=== PATIENT | female | born 1965 | race Caucasian/White ===

== ENCOUNTER → 2019-03-13 | Day surgery (SDC) | payer OTHER ==
[2019-03-12 10:54] LABS: ANION GAP 13.8 mmol/L (8-16); BLOOD UREA NITROGEN 10 mg/dL (7-26); BUN/CREATININE RATIO 13 (6-25); CALCIUM 9.8 mg/dL (8.4-10.2); CARBON DIOXIDE 27 mmol/L (22-29); CHLORIDE 101 mmol/L (98-107); CREATININE, SERUM 0.79 mg/dL (0.57-1.11); EST GLOMERULAR FILTRATION RATE > 60 ML/MIN (60-); GLUCOSE 88 mg/dL (74-118); POTASSIUM 3.8 mmol/L (3.5-5.1); SODIUM 138 mmol/L (136-145)
[~2019-03-13] MED LIST: ALBUTEROL0.63 MG/3 INH; AMLODIPINE BESY10 MG PO; ASPIR 8181 MG PO; AZELASTINE137 MCG/0.; BUPIVACAINE HCL 0.5% INJ 30 ML VIAL INJ ONE; CEFAZOLIN SOD 1 GM/NS 50ML 50 ML IV ONE; DEXAMETHASONE SOD PHOS INJ 4 MG/ML VIAL ONE; FENTANYL CITRATE/PF 100MCG/2 ML INJ ONE; KETOROLAC TROMETHAMINE 30 MG/ML VIAL ONE; LEVOTHYROXINE112 MCG PO; LIDOCAINE 1% W/EPINEPHRINE 20 ML VIAL ONE; LIDOCAINE HCL 2% LOCAL INJ 5 ML SDV VIAL INJ ONE; MIDAZOLAM HCL 2 MG/2 ML VIAL ONE; ONDANSETRON HCL INJ 2MG/ML 2ML 2 MG/ML VIAL ONE; PENTOXIFYLLINE400 MG PO; PROPOFOL IV EMULSION 10 MG/ML 20 ML VIAL ONE; SEVOFLURANE INHAL SOLN 250 ML PEN BTL ONE; TRIAMTERENE-HCTZ1 EA PO; TYLENOL WITH C1 EAC1 PO; VITAMIN B-121000 MC1 PO
--- OUTSIDE RECORDS SUMMARY | 2019-03-13 06:21 | XMS REPORT | Summary of Care ---
Author Author [facility] Address Unknown Phone Unavailable Encounter FIN [facility] [id number] Date(s): 05/02/17 - 05/02/17 [facility] [address], [place] [address] Discharge Diagnosis: Postmenopausal bleeding Discharge Disposition: Discharged to Home or Self Care Attending Physician: Amna Posey MD Admitting Physician: Amna Posey MD Vital Signs 1 2 3 Most recent to oldest [Reference Range]: 36.8 DegC (04/28/17 10:43 AM) Temperature Oral [35.8-37.3 DegC] 36.4 DegC *LOW* (05/02/17 7:30 AM) Temperature Tympanic [36.6-38.1 DegC] 36.8 DegC (05/02/17 6:05 AM) Temperature Temporal Artery [36.3-37.8 DegC] 97.52 (05/02/17 7:30 AM) Temperature Tympanic Fahrenheit 63 bpm (05/02/17 6:05 AM) 56 bpm (04/28/17 10:43 AM) Peripheral Pulse Rate [55-105 bpm] 68 bpm (05/02/17 8:00 AM) 65 bpm (05/02/17 7:45 AM) 66 bpm (05/02/17 7:40 AM) Heart Rate Monitored [60-100 bpm] 16 (05/02/17 8:00 AM) 16 (05/02/17 7:45 AM) 16 (05/02/17 7:40 AM) Respiratory Rate [12-20] 99 % (05/02/17 8:00 AM) 99 % (05/02/17 7:45 AM) 99 % (05/02/17 7:40 AM) SpO2 [90-100 %] 114/66 mmHg (8/7/17 8:00 AM) 121/68 mmHg *HI* (05/02/17 7:45 AM) 99/62 mmHg *LOW* (05/02/17 7:40 AM) Blood Pressure [110-120/65-85 mmHg] 82 mmHg (05/02/17 8:00 AM) 85.7 mmHg (05/02/17 7:45 AM) 74.3 mmHg (05/02/17 7:40 AM) Mean Arterial Pressure, Cuff 172.72 cm (05/02/17 6:05 AM) 172.72 cm (04/28/17 10:43 AM) Height 172.72 cm (05/02/17 6:05 AM) 172.72 cm (04/28/17 10:43 AM) Height/Length Dosing 68 in (05/02/17 6:05 AM) 68 in (04/28/17 10:43 AM) Height Inches 57.61 kg (05/02/17 6:05 AM) 57.6 kg (04/28/17 10:43 AM) Weight 57.61 kg (05/02/17 6:05 AM) 57.6 kg (04/28/17 10:43 AM) Weight Dosing 127 lb (05/02/17 6:05 AM) 127 lb (04/28/17 10:43 AM) Weight Pounds 19.31 kg/m2 (05/02/17 6:05 AM) 19.31 kg/m2 (04/28/17 10:43 AM) Body Mass Index Problem List Condition Effective Dates Status Health Status Informant Hypertension(Confirm Active ed) Hypothyroidism(Confi Active rmed) Postmenopausal Active bleeding(Confirmed) Raynauds Active disease(Confirmed) Scleroderma(Confirme Active d) Allergies, Adverse Reactions, Alerts Substance Reaction Severity Status influenza virus vaccine, Active live Medications amLODIPine 10 mg oral tablet 10 mg=1 tabs, Oral, Daily, 0 Refill(s) Start Date: 04/28/17 Stop Date: 05/12/17 Status: Ordered Aspir 81 1 mg, Oral, Daily, 0 Refill(s) Start Date: 04/28/17 Stop Date: 05/12/17 Status: Ordered cefOXitin 2 gm, Soln-IV, IV Piggyback, Once, infuse over 30 minutes, first dose 05/02/17 6 :00:00 CDT, stop date 05/02/17 6:00:00 CDT, Prophylaxis Start Date: 05/02/17 Stop Date: 05/02/17 Status: Completed cefOXitin 2,000 mg, Soln-IV, IV, Once, first dose 05/02/17 7:15:00 CDT, stop date 05/02/17 7:15:00 CDT Start Date: 05/02/17 Stop Date: 05/02/17 Status: Completed Demerol HCl 12.5 mg=0.5 mL, Injection, IV Push, q5min PRN for Pain Mild (1-3), order duratio n: 4 doses, first dose 05/02/17 7:30:00 CDT, stop date Limited # of times Start Date: 05/02/17 Stop Date: 05/02/17 Status: Discontinued dexamethasone 8 mg, Injection, IV Push, Once, first dose 05/02/17 7:00:00 CDT, stop date 05/02 7:00:00 CDT Start Date: 05/02/17 Stop Date: 05/02/17 Status: Completed ePHEDrine 10 mg=0.2 mL, Injection, IV, Once, first dose 05/02/17 7:12:00 CDT, stop date 7:12:00 CDT Start Date: 05/02/17 Stop Date: 05/02/17 Status: Completed ethyl chloride topical spray 1 sprays, [place], TOP, Once, first dose 05/02/17 6:00:00 CDT, stop date 05/02/17 6:00:00 CDT Start Date: 05/02/17 Stop Date: 05/02/17 Status: Completed fentaNYL 100 mcg=2 mL, Injection, IV, Once, first dose 05/02/17 7:05:00 CDT, stop date 7:05:00 CDT Start Date: 05/02/17 Stop Date: 05/02/17 Status: Completed hydrochlorothiazide-triamterene 25 mg-37.5 mg oral capsule caps, Oral, Daily, 0 Refill(s) Start Date: 04/28/17 Stop Date: 05/12/17 Status: Ordered ibuprofen 800 mg oral tablet 800 mg=1 tabs, Oral, TID, PRN for pain, # 20 tabs, 1 Refill(s) Start Date: 05/02/17 Stop Date: 05/16/17 Status: Ordered lidocaine 4 mL, Injection, IV, Once, first dose 05/02/17 7:05:00 CDT, stop date 05/02/17 7 :05:00 CDT Start Date: 05/02/17 Stop Date: 05/02/17 Status: Completed LR 1,000 mL 1,000 mL, IV, 100 mL/hr, start date 05/02/17 5:42:00 CDT, For Adults Start Date: 05/02/17 Stop Date: 05/02/17 Status: Discontinued midazolam 2 mg=2 mL, Injection, IV, Once, first dose 05/02/17 6:56:00 CDT, stop date 05/02 6:56:00 CDT Start Date: 05/02/17 Stop Date: 05/02/17 Status: Completed Misc Medication 500 mL, Soln-IV, IV, Once, first dose 05/02/17 7:37:00 CDT, stop date 05/02/17 7 :37:00 CDT Start Date: 05/02/17 Stop Date: 05/02/17 Status: Completed morphine 1 mg=0.1 mL, Injection, IV Push, q5min PRN for Pain Moderate (4-6), order durati on: 5 doses, first dose 05/02/17 7:30:00 CDT, stop date Limited # of times Start Date: 05/02/17 Stop Date: 05/02/17 Status: Discontinued morphine 2 mg=0.2 mL, Injection, IV Push, q5min PRN for pain severe (7-10), order duratio n: 5 doses, first dose 05/02/17 7:30:00 CDT, stop date Limited # of times Start Date: 05/02/17 Stop Date: 05/02/17 Status: Discontinued ondansetron 4 mg=2 mL, Injection, IV Push, Once, first dose 05/02/17 7:00:00 CDT, stop date 05/02/17 7:00:00 CDT Start Date: 05/02/17 Stop Date: 05/02/17 Status: Completed promethazine IVPB 12.5 mg, IV Piggyback, Once PRN for nausea/vomiting, infuse over 15 minutes, fir st dose 05/02/17 7:30:00 CDT Start Date: 05/02/17 Stop Date: 05/02/17 Status: Discontinued propofol 150 mg=15 mL, Emulsion, IV, Once, first dose 05/02/17 7:05:00 CDT, stop date 04/11 7:05:00 CDT Start Date: 05/02/17 Stop Date: 05/02/17 Status: Completed scopolamine 1.5 mg transdermal film, extended release 1 patches, Film-ER, TD, Once, first dose 05/02/17 7:00:00 CDT, stop date 7 7:00:00 CDT Start Date: 05/02/17 Stop Date: 05/02/17 Status: Completed Synthroid 200 mcg (0.2 mg) oral tablet 200 mcg=1 tabs, Oral, Daily, 0 Refill(s) Start Date: 04/28/17 Stop Date: 05/12/17 Status: Ordered Transderm-Scop 1.5 mg transdermal film, extended release 1 patches, Film-ER, TD, At Discharge, first dose 05/02/17 7:27:00 CDT Start Date: 05/02/17 Stop Date: 05/02/17 Status: Discontinued Zoloft 100 mg oral tablet 100 mg=1 tabs, Oral, qHS, 0 Refill(s) Start Date: 04/28/17 Stop Date: 05/12/17 Status: Ordered Results LABORATORY Most recent to 1 oldest [Reference Range]: White Blood Count 9.9 K/CMM [3.7-10.4 K/CMM] *NA* (04/28/17 11:50 AM) Red Blood Cell Count 4.26 M/CMM [4.20-5.40 M/CMM] *NA* (04/28/17 11:50 AM) Hemoglobin 12.7 gm/dL [12.0-16.0 gm/dL] *NA* (04/28/17 11:50 AM) Hematocrit 37.9 % [36.0-48.0 %] *NA* (04/28/17 11:50 AM) Platelet [133-450 288 K/CMM K/CMM] *NA* (04/28/17 11:50 AM) MCV [80.0-98.0 fL] 88.9 fL *NA* (04/28/17 11:50 AM) MCH [27.0-31.0 pg] 29.8 pg *NA* (04/28/17 11:50 AM) MCHC [32.0-36.0 33.5 gm/dL gm/dL] *NA* (04/28/17 11:50 AM) RDW [11.5-14.5 %] 15.4 % *HI* (04/28/17 11:50 AM) MPV [7.4-10.4 fL] 10.1 fL *NA* (04/28/17 11:50 AM) Neutrophil % 43.3 % [45.0-75.0 %] *LOW* (04/28/17 11:50 AM) Lymphocyte % 32.8 % [20.0-40.0 %] *NA* (04/28/17 11:50 AM) Monocyte % [2.0-12.0 13.1 % %] *HI* (04/28/17 11:50 AM) Eosinophil % 0.8 K/CMM [0.0-0.5 K/CMM] *HI* (04/28/17 11:50 AM) Basophil % [0.0-1.0 2.8 % %] *HI* (04/28/17 11:50 AM) Neutrophil # 4.3 K/CMM [1.5-8.1 K/CMM] *NA* (04/28/17 11:50 AM) Lymphocyte # 3.2 K/CMM [1.0-5.5 K/CMM] *NA* (04/28/17 11:50 AM) Monocyte # [0.0-0.8 1.3 K/CMM K/CMM] *HI* (04/28/17 11:50 AM) Eosinophil # 8.0 % [0.0-4.0 %] *HI* (04/28/17 11:50 AM) Basophil # [0.0-0.2 0.3 K/CMM K/CMM] *HI* (04/28/17 11:50 AM) Sodium Level 138 mEq/L [135-145 mEq/L] *NA* (04/28/17 11:50 AM) Potassium Level 3.7 mEq/L [3.5-5.1 mEq/L] *NA* (04/28/17 11:50 AM) Chloride Level 98 mEq/L [95-109 mEq/L] *NA* (04/28/17 11:50 AM) Total Carbon Dioxide 32 mEq/L Level [24-32 mEq/L] *NA* (04/28/17 11:50 AM) AGAP [10.0-20.0 11.7 mEq/L mEq/L] *NA* (04/28/17 11:50 AM) BUN [7-22 mg/dL] 10 mg/dL *NA* (04/28/17 11:50 AM) Creatinine 0.95 mg/dL [0.50-1.40 mg/dL] *NA* (04/28/17 11:50 AM) Glucose Lvl [70-99 64 mg/dL 1 mg/dL] *LOW* (04/28/17 11:50 AM) Calcium Level 9.3 mg/dL [8.5-10.5 mg/dL] *NA* (04/28/17 11:50 AM) eGFR 70 mL/min/1.73m2 2 *NA* (04/28/17 11:50 AM) Magnesium Level 2.0 mg/dL [1.8-2.4 mg/dL] *NA* (04/28/17 11:50 AM) Beta hCG Ql Negative [Negative] *NA* (04/28/17 11:50 AM) 1Result Comment: Adult reference range values reflect the clinical guidelines of the [place] [employer]. 2Result Comment: The eGFR is calculated using the CKD-EPI formula. In most young, healthy individuals the eGFR will be >90 mL/min/1.73m2. The eGFR declines with age. An eGFR of 60-89 may be normal in some populations, particularly the elderly, for whom the CKD-EPI formula has not been extensively validated. Use of the eGFR is not recommended in the following populations: Individuals with unstable creatinine concentrations, including patients and those with serious co-morbid conditions. Patients with extremes in muscle mass or diet. The data above are obtained from the National Kid[employer] Education Program (NKDEP) which additionally recommends that when the eGFR is used in patients with extremes of body mass index for purposes of drug dosing, the eGFR should be multiplied by the estimated BMI. Immunizations No data available for this section Procedures Procedure Date Related Diagnosis Body Site Acute tear of lateral meniscus of right knee Cryotherapy TL - Tubal ligation Social History Social History Type Response Assessment and Plan No data available for this section
--- OUTSIDE RECORDS SUMMARY | 2019-03-13 06:21 | XMS REPORT | Continuity of Care Document ---
Author Author [facility] Interface Address Unknown Phone Unavailable Problems Problem Status Onset Date Classification Date Reported Comments Source Other chronic sinusitis 11/09/2018 11/11/2018 [facility] Discharge Diagnosis: Endometrial hyperplasia, unspecified 08/22/2017 08/25/2017 [facility] Discharge Diagnosis: Postmenopausal bleeding 05/02/2017 05/04/2017 [facility] Endometrial hyperplasia Active Problem 11/11/2018 [facility] Hepatitis C<sup>1</sup> Resolved Problem 11/11/2018 was when she was 9years old and took treatment [facility] Hypertension Active Problem 11/11/2018 [facility] Hypothyroidism Active Problem 11/11/2018 [facility] Lupus Active Problem 11/11/2018 [facility] PONV - Postoperative nausea and vomiting Active Problem 11/11/2018 [facility] Postmenopausal bleeding Active Problem 11/11/2018 [facility] Raynauds disease Active Problem 11/11/2018 [facility] Scleroderma Active Problem 11/11/2018 [facility] Medications Medication Details Route Status Patient Instructions Ordering Provider Order Date Source [facility] Medication 900 mL, Soln-IV, IV, Once, first dose 11/09/18 10:05:00 BELT SANDER, stop date 11/09/18 10:05:00 BELT SANDER Inactive 11/09/2018 [facility] glycopyrrolate 0.8 mg=4 mL, Injection, IV, Once, first dose 11/09/18 9:43:00 BELT SANDER, stop date 11/09/18 9:43:00 BELT SANDER Inactive 11/09/2018 [facility] neostigmine 5 mg=5 mL, Injection, IV, Once, first dose 11/09/18 9:43:00 BELT SANDER, stop date 11/09/18 9:43:00 BELT SANDER Inactive 11/09/2018 [facility] ondansetron 4 mg=2 mL, Injection, IV, Once, first dose 11/09/18 9:38:00 BELT SANDER, stop date 11/09/18 9:38:00 BELT SANDER Inactive 11/09/2018 [facility] acetaminophen 1,000 mg, Soln-IV, IV, Once, first dose 11/09/18 9:08:00 BELT SANDER, stop date 11/09/18 9:08:00 BELT SANDER Inactive 11/09/2018 [facility] ondansetron 4 mg=2 mL, Injection, IV, Once, first dose 11/09/18 9:03:00 BELT SANDER, stop date 11/09/18 9:03:00 BELT SANDER Inactive 11/09/2018 [facility] promethazine 12.5 mg=0.5 mL, Injection, IV, Once, first dose 11/09/18 8:54:00 BELT SANDER, stop date 11/09/18 8:54:00 BELT SANDER Inactive 11/09/2018 [facility] dexamethasone 8 mg=2 mL, Injection, IV, Once, first dose 11/09/18 8:53:00 BELT SANDER, stop date 11/09/18 8:53:00 BELT SANDER Inactive 11/09/2018 [facility] ePHEDrine 25 mg=0.5 mL, Injection, IM, Once, first dose 11/09/18 8:49:00 BELT SANDER, stop date 11/09/18 8:49:00 BELT SANDER Inactive 11/09/2018 [facility] ePHEDrine 10 mg=0.2 mL, Injection, IV, Once, first dose 11/09/18 8:45:00 BELT SANDER, stop date 11/09/18 8:45:00 BELT SANDER Inactive 11/09/2018 [facility] rocuronium 35 mg=3.5 mL, Injection, IV, Once, first dose 11/09/18 8:41:00 BELT SANDER, stop date 11/09/18 8:41:00 BELT SANDER Inactive 11/09/2018 [facility] lidocaine 80 mg=4 mL, Injection, IV, Once, first dose 11/09/18 8:41:00 BELT SANDER, stop date 11/09/18 8:41:00 BELT SANDER Inactive 11/09/2018 [facility] propofol 150 mg=15 mL, Emulsion, IV, Once, first dose 11/09/18 8:41:00 BELT SANDER, stop date 11/09/18 8:41:00 BELT SANDER Inactive 11/09/2018 [facility] fentaNYL 100 mcg=2 mL, Injection, IV, Once, first dose 11/09/18 8:41:00 BELT SANDER, stop date 11/09/18 8:41:00 BELT SANDER Inactive 11/09/2018 [facility] midazolam 2 mg=2 mL, Injection, IV, Once, first dose 11/09/18 8:30:00 BELT SANDER, stop date 11/09/18 8:30:00 BELT SANDER Inactive 11/09/2018 [facility] Pain Ease topical spray 1 sprays, [place], TOP, Once, first dose 11/09/18 8:00:00 BELT SANDER, stop date 11/09/18 8:00:00 BELT SANDER, Apply topically for 4 - 10 seconds from a distance of 3 - 7 inches from the procedure site Inactive 11/09/2018 [facility] LR 1,000 mL 1,000 mL, IV, 100 mL/hr, start date 11/09/18 7:55:00 BELT SANDER, For Adults Inactive 11/09/2018 [facility] Colace 100 mg=1 caps, Cap, Oral, BID, first dose 08/23/17 9:00:00 BELT SANDER Inactive 08/23/2017 [facility] Lovenox 30 mg=0.3 mL, Injection, Subcutaneous, Daily, first dose 08/23/17 9:00:00 BELT SANDER Inactive 08/23/2017 [facility] Vicoprofen 1 tabs, Tab, Oral, q4hr PRN for pain mild-moderate (1-6), first dose 08/23/17 5:00:00 BELT SANDER Inactive 08/23/2017 [facility] ketorolac 30 mg=1 mL, Injection, IV Push, q8hr, first dose 08/22/17 21:00:00 CSTNotes: "Restricted: No more than 5 days of therapy from any route of administration." No Longer Active 08/23/2017 [facility] acetaminophen IVPB 1,000 mg, Soln-IV, IV Piggyback, q6hr, infuse over 15 minutes, first dose 08/22/17 14:00:00 CSTNotes: Max 4gm acetaminophen in 24 hours No Longer Active 08/22/2017 [facility] Lactated Ringers Injection 1,000 mL 1,000 mL, IV, 125 mL/hr, start date 08/22/17 14:00:00 BELT SANDER No Longer Active 08/22/2017 [facility] ketorolac 30 mg=1 mL, Injection, IV Push, q8hr PRN for pain, first dose 08/22/17 11:02:00 CSTNotes: "Restricted: No more than 5 days of therapy from any route of administration." Inactive 08/22/2017 [facility] Vicoprofen 2 tabs, Tab, Oral, Once, first dose 08/22/17 11:00:00 BELT SANDER, stop date 08/22/17 11:00:00 BELT SANDER [id number] 08/22/2017 [facility] communication to pharmacist Pharmacist to D/C medications upon transfer, Each, N/A, Once, first dose 08/22/17 11:00:00 BELT SANDER, stop date 08/22/17 11:00:00 BELT SANDER Inactive 08/22/2017 [facility] ondansetron 4 mg=2 mL, Injection, IV Push, q8hr PRN for nausea/vomiting, first dose 08/22/17 10:06:00 BELT SANDER No Longer Active 08/22/2017 [facility] promethazine IVPB 12.5 mg, IV Piggyback, q6hr PRN for severe nausea, infuse over 15 minutes, first dose 08/22/17 10:06:00 BELT SANDER No Longer Active 08/22/2017 [facility] Acetaminophen 650 mg=2 tabs, Tab, Oral, q6hr PRN for temp greater than 101.5 F (38.6 C), first dose 08/22/17 10:06:00 CSTNotes: Max 4gm acetaminophen in 24 hours No Longer Active 08/22/2017 [facility] Mylicon 160 mg=2 tabs, Tab-Chew, Oral, q4hr PRN for gas, first dose 08/22/17 10:06:00 BELT SANDER No Longer Active 08/22/2017 [facility] Benadryl 25 mg=0.5 mL, Injection, IM, q6hr PRN for itching, first dose 08/22/17 10:06:00 BELT SANDER No Longer Active 08/22/2017 [facility] Meperidine 30 mL, [employer] Dose (mg): 10, Lockout Interval (min): 10, Limit Amount (mg): 50, Limit Period (hr): 1, Loading Dose (mg): 20, IV, [employer], start date 08/22/17 10:06:00 BELT SANDER No Longer Active 08/22/2017 [facility] D5W with NS 1,000 mL 1,000 mL, IV, 125 mL/hr, start date 08/22/17 10:06:00 BELT SANDER Inactive 08/22/2017 [facility] naloxone 0.4 mg=1 mL, Injection, IV Push, q2min PRN for other (see comment), first dose 08/22/17 10:06:00 BELT SANDER No Longer Active 08/22/2017 [facility] Demerol HCl 12.5 mg=0.5 mL, Injection, IV Push, q5min PRN for Pain Mild (1-3), order duration: 4 doses, first dose 08/22/17 9:00:00 BELT SANDER, stop date 08/22/17 10:15:00 BELT SANDER Inactive 08/22/2017 [facility] morphine 2 mg=0.2 mL, Injection, IV Push, q5min PRN for pain severe (7-10), order duration: 5 doses, first dose 08/22/17 9:00:00 BELT SANDER, stop date 08/22/17 10:15:00 BELT SANDER Inactive 08/22/2017 [facility] promethazine IVPB 12.5 mg, IV Piggyback, Once PRN for nausea/vomiting, infuse over 15 minutes, first dose 08/22/17 9:00:00 BELT SANDER Inactive 08/22/2017 [facility] Misc Medication 1,000 mL, Soln-IV, IV, Once, first dose 08/22/17 8:51:00 BELT SANDER, stop date 08/22/17 8:51:00 BELT SANDER Inactive 08/22/2017 [facility] morphine 5 mg=0.5 mL, Injection, IV, Once, first dose 08/22/17 8:33:00 BELT SANDER, stop date 08/22/17 8:33:00 BELT SANDER Inactive 08/22/2017 [facility] neostigmine 3 mg=3 mL, Injection, IV, Once, first dose 08/22/17 8:27:00 BELT SANDER, stop date 08/22/17 8:27:00 BELT SANDER Inactive 08/22/2017 [facility] glycopyrrolate 0.4 mg=2 mL, Injection, IV, Once, first dose 08/22/17 8:27:00 BELT SANDER, stop date 08/22/17 8:27:00 BELT SANDER Inactive 08/22/2017 [facility] ondansetron 4 mg=2 mL, Injection, IV, Once, first dose 08/22/17 8:25:00 BELT SANDER, stop date 08/22/17 8:25:00 BELT SANDER Inactive 08/22/2017 [facility] ketorolac 30 mg=1 mL, Injection, IV, Once, first dose 08/22/17 8:20:00 BELT SANDER, stop date 08/22/17 8:20:00 BELT SANDER Inactive 08/22/2017 [facility] acetaminophen 1,000 mg, Soln-IV, IV, Once, first dose 08/22/17 8:10:00 BELT SANDER, stop date 08/22/17 8:10:00 BELT SANDER Inactive 08/22/2017 [facility] rocuronium 10 mg=1 mL, Injection, IV, Once, first dose 08/22/17 8:04:00 BELT SANDER, stop date 08/22/17 8:04:00 BELT SANDER Inactive 08/22/2017 [facility] morphine 5 mg=0.5 mL, Injection, IV, Once, first dose 08/22/17 7:50:00 BELT SANDER, stop date 08/22/17 7:50:00 BELT SANDER Inactive 08/22/2017 [facility] ePHEDrine 10 mg=0.2 mL, Injection, IV, Once, first dose 08/22/17 7:45:00 BELT SANDER, stop date 08/22/17 7:45:00 BELT SANDER Inactive 08/22/2017 [facility] ePHEDrine 10 mg=0.2 mL, Injection, IV, Once, first dose 08/22/17 7:36:00 BELT SANDER, stop date 08/22/17 7:36:00 BELT SANDER Inactive 08/22/2017 [facility] dexamethasone 8 mg=2 mL, Injection, IV, Once, first dose 08/22/17 7:35:00 BELT SANDER, stop date 08/22/17 7:35:00 BELT SANDER Inactive 08/22/2017 [facility] lidocaine topical 1 esdras, Soln, IV, Once, first dose 08/22/17 7:32:00 BELT SANDER, stop date 08/22/17 7:32:00 BELT SANDER Inactive 08/22/2017 [facility] rocuronium 30 mg=3 mL, Injection, IV, Once, first dose 08/22/17 7:30:00 BELT SANDER, stop date 08/22/17 7:30:00 BELT SANDER Inactive 08/22/2017 [facility] lidocaine 3 mL, Injection, IV, Once, first dose 08/22/17 7:29:00 BELT SANDER, stop date 08/22/17 7:29:00 BELT SANDER Inactive 08/22/2017 [facility] propofol 150 mg=15 mL, Emulsion, IV, Once, first dose 08/22/17 7:29:00 BELT SANDER, stop date 08/22/17 7:29:00 BELT SANDER Inactive 08/22/2017 [facility] fentaNYL 100 mcg=2 mL, Injection, IV, Once, first dose 08/22/17 7:25:00 BELT SANDER, stop date 08/22/17 7:25:00 BELT SANDER Inactive 08/22/2017 [facility] cefOXitin 2,000 mg, Soln-IV, IV, Once, first dose 08/22/17 7:22:00 BELT SANDER, stop date 08/22/17 7:22:00 BELT SANDER Inactive 08/22/2017 [facility] midazolam 2 mg=2 mL, Injection, IV, Once, first dose 08/22/17 7:20:00 BELT SANDER, stop date 08/22/17 7:20:00 BELT SANDER Inactive 08/22/2017 [facility] 72 HR Scopolamine 0.0139 MG/HR Transdermal Patch 1 patches, Film-ER, TD, Once, first dose 08/22/17 7:00:00 BELT SANDER, stop date 08/22/17 7:00:00 BELT SANDER Inactive 08/22/2017 [facility] ondansetron 4 mg=2 mL, Injection, IV Push, Once, first dose 08/22/17 7:00:00 BELT SANDER, stop date 08/22/17 7:00:00 BELT SANDER Inactive 08/22/2017 [facility] dexamethasone 8 mg, Injection, IV Push, Once, first dose 08/22/17 7:00:00 BELT SANDER, stop date 08/22/17 7:00:00 BELT SANDER Inactive 08/22/2017 [facility] cefOXitin 2 gm, Soln-IV, IV Piggyback, Once, infuse over 30 minutes, first dose 08/22/17 7:00:00 BELT SANDER, stop date 08/22/17 7:00:00 BELT SANDER, Prophylaxis Inactive 08/22/2017 [facility] Pain Ease topical spray 1 sprays, [place], TOP, Once, first dose 08/22/17 7:00:00 BELT SANDER, stop date 08/22/17 7:00:00 BELT SANDER, Apply topically for 4 - 10 seconds from a distance of 3 - 7 inches from the procedure site Inactive 08/22/2017 [facility] LR 1,000 mL 1,000 mL, IV, 100 mL/hr, start date 08/22/17 6:23:00 BELT SANDER, For Adults No Longer Active 08/22/2017 [facility] Misc Medication 500 mL, Soln-IV, IV, Once, first dose 05/02/17 7:37:00 CDT, stop date 05/02/17 7:37:00 CDT Inactive 05/02/2017 [facility] Morphine 1 mg=0.1 mL, Injection, IV Push, q5min PRN for Pain Moderate (4-6), order duration: 5 doses, first dose 05/02/17 7:30:00 CDT, stop date Limited # of times Inactive 05/02/2017 [facility] Demerol HCl 12.5 mg=0.5 mL, Injection, IV Push, q5min PRN for Pain Mild (1-3), order duration: 4 doses, first dose 05/02/17 7:30:00 CDT, stop date Limited # of times Inactive 05/02/2017 [facility] promethazine IVPB 12.5 mg, IV Piggyback, Once PRN for nausea/vomiting, infuse over 15 minutes, first dose 05/02/17 7:30:00 CDT Inactive 05/02/2017 [facility] Ibuprofen 800 MG Oral Tablet 800 mg=1 tabs, Oral, TID, PRN for pain, # 20 tabs, 1 Refill(s) [id number] 05/02/2017 [facility] 72 HR Scopolamine 0.0139 MG/HR Transdermal Patch [Transderm Scop] 1 patches, Film-ER, TD, At Discharge, first dose 05/02/17 7:27:00 CDT Inactive 05/02/2017 [facility] cefOXitin 2,000 mg, Soln-IV, IV, Once, first dose 05/02/17 7:15:00 CDT, stop date 05/02/17 7:15:00 CDT Inactive 05/02/2017 [facility] ePHEDrine 10 mg=0.2 mL, Injection, IV, Once, first dose 05/02/17 7:12:00 CDT, stop date 05/02/17 7:12:00 CDT Inactive 05/02/2017 [facility] fentaNYL 100 mcg=2 mL, Injection, IV, Once, first dose 05/02/17 7:05:00 CDT, stop date 05/02/17 7:05:00 CDT Inactive 05/02/2017 [facility] lidocaine 4 mL, Injection, IV, Once, first dose 05/02/17 7:05:00 CDT, stop date 05/02/17 7:05:00 CDT Inactive 05/02/2017 [facility] propofol 150 mg=15 mL, Emulsion, IV, Once, first dose 05/02/17 7:05:00 CDT, stop date 05/02/17 7:05:00 CDT Inactive 05/02/2017 [facility] Ondansetron 4 mg=2 mL, Injection, IV Push, Once, first dose 05/02/17 7:00:00 CDT, stop date 05/02/17 7:00:00 CDT Inactive 05/02/2017 [facility] 72 HR Scopolamine 0.0139 MG/HR Transdermal Patch 1 patches, Film-ER, TD, Once, first dose 05/02/17 7:00:00 CDT, stop date 05/02/17 7:00:00 CDT Inactive 05/02/2017 [facility] Dexamethasone 8 mg, Injection, IV Push, Once, first dose 05/02/17 7:00:00 CDT, stop date 05/02/17 7:00:00 CDT Inactive 05/02/2017 [facility] midazolam 2 mg=2 mL, Injection, IV, Once, first dose 05/02/17 6:56:00 CDT, stop date 05/02/17 6:56:00 CDT Inactive 05/02/2017 [facility] Cefoxitin 2 gm, Soln-IV, IV Piggyback, Once, infuse over 30 minutes, first dose 05/02/17 6:00:00 CDT, stop date 05/02/17 6:00:00 CDT, Prophylaxis Inactive 05/02/2017 [facility] Ethyl Chloride 1 ML/ML Topical [place] 1 sprays, [place], TOP, Once, first dose 05/02/17 6:00:00 CDT, stop date 05/02/17 6:00:00 CDT Inactive 05/02/2017 [facility] LR 1,000 mL 1,000 mL, IV, 100 mL/hr, start date 05/02/17 5:42:00 CDT, For Adults Inactive 05/02/2017 [facility] Sertraline 100 MG Oral Tablet [Zoloft] 100 mg=1 tabs, Oral, qHS, 0 Refill(s) Active 04/28/2017 [facility] Sertraline 100 MG Oral Tablet [Zoloft] 100 mg=1 tabs, Oral, qHS, 0 Refill(s) Active 04/28/2017 [facility] amLODIPine 10 mg oral tablet 10 mg=1 tabs, Oral, Daily, 0 Refill(s) Active 04/28/2017 [facility] Aspir 81 1 mg, Oral, Daily, 0 Refill(s) Active 04/28/2017 [facility] Hydrochlorothiazide 25 MG / Triamterene 37.5 MG Oral Capsule caps, Oral, Daily, 0 Refill(s) Active 04/28/2017 [facility] Levothyroxine Sodium 0.2 MG Oral Tablet [Synthroid] 200 mcg=1 tabs, Oral, Daily, 0 Refill(s) Active 04/28/2017 [facility] hydrochlorothiazide-triamterene 25 mg-37.5 mg oral capsule caps, Oral, Daily, 0 Refill(s) Active 04/28/2017 [facility] Levothyroxine Sodium 0.2 MG Oral Tablet [Synthroid] 200 mcg=1 tabs, Oral, Daily, 0 Refill(s) Active 04/28/2017 [facility] Allergies, Adverse Reactions, Alerts Substance Category Reaction Severity Reaction type Status Date Reported Comments Source influenza virus vaccine, live Assertion Drug allergy Active [facility] Immunizations Immunization Date Given Site Status Last Updated Comments Source Results Order Name Results Value Reference Range Date Interpretation Comments Source LABORATORY PTT 35.6 s 22.9 - 35.8 11/06/2018 Result Comment: Heparin Therapeutic Range: 57 - 92 Seconds [facility] PT 13.0 s 12.0 - 14.7 11/06/2018 [facility] INR 1.00 0.85 - 1.17 11/06/2018 Result Comment: RECOMMENDED RANGES FOR PROTIME INR: 2.0-3.0 for most medical and surgical thromboembolic states. 2.5-3.5 for artificial heart valves and recurrent embolism. INR SHOULD BE USED ONLY FOR PATIENTS ON STABLE ANTICOAGULANT THERAPY. [facility] AGAP 12.9 meq/L 10.0 - 20.0 11/06/2018 [facility] Calcium Level 9.4 mg/dL 8.5 - 10.5 11/06/2018 [facility] BUN 15 mg/dL 7 - 22 11/06/2018 [facility] Glucose Lvl 86 mg/dL 70 - 99 11/06/2018 Result Comment: Adult reference range values reflect the clinical guidelines of the [place] [employer]. [facility] Sodium Level 138 meq/L 135 - 145 11/06/2018 [facility] Potassium Level 3.9 meq/L 3.5 - 5.1 11/06/2018 [facility] Carbon Dioxide Level 29 meq/L 24 - 32 11/06/2018 [facility] Chloride Level 100 meq/L 95 - 109 11/06/2018 [facility] Creatinine 0.69 mg/dL 0.50 - 1.40 11/06/2018 [facility] eGFR 101 mL/min/1.73m2 11/06/2018 Result Comment: The eGFR is calculated using the [...] should be multiplied by the estimated BMI. [facility] ALT 20 unit/L 0 - 65 11/06/2018 [facility] AST 17 unit/L 0 - 37 11/06/2018 [facility] Red Blood Cell Count 4.30 M/CMM 4.20 - 5.40 11/06/2018 [facility] Platelet 320 K/CMM 133 - 450 11/06/2018 [facility] MPV 9.7 fL 7.4 - 10.4 11/06/2018 [facility] MCHC 32.0 g/dL 32.0 - 36.0 11/06/2018 [facility] RDW 16.8 % 11.5 - 14.5 11/06/2018 [facility] White Blood Count 9.4 K/CMM 3.7 - 10.4 11/06/2018 [facility] MCV 83.8 fL 80.0 - 98.0 11/06/2018 [facility] MCH 26.8 pg 27.0 - 31.0 11/06/2018 [facility] Hemoglobin 11.5 g/dL 12.0 - 16.0 11/06/2018 [facility] Hematocrit 36.0 % 36.0 - 48.0 11/06/2018 [facility] Eosinophil # 6.2 % 0.0 - 4.0 11/06/2018 [facility] Neutrophil % 40.1 % 45.0 - 75.0 11/06/2018 [facility] Monocyte % 15.5 % 2.0 - 12.0 11/06/2018 [facility] Basophil % 1.3 % 0.0 - 1.0 11/06/2018 [facility] Lymphocyte % 36.9 % 20.0 - 40.0 11/06/2018 [facility] Eosinophil % 0.6 K/CMM 0.0 - 0.5 11/06/2018 [facility] Basophil # 0.1 K/CMM 0.0 - 0.2 11/06/2018 [facility] Lymphocyte # 3.5 K/CMM 1.0 - 5.5 11/06/2018 [facility] Monocyte # 1.5 K/CMM 0.0 - 0.8 11/06/2018 [facility] Neutrophil # 3.8 K/CMM 1.5 - 8.1 11/06/2018 [facility] FIO2 98 % 08/22/2017 [facility] Lymphocyte # 2.8 K/CMM 1.0 - 5.5 08/17/2017 [facility] Neutrophil # 3.8 K/CMM 1.5 - 8.1 08/17/2017 [facility] Eosinophil % 0.3 K/CMM 0.0 - 0.5 08/17/2017 [facility] Monocyte # 1.1 K/CMM 0.0 - 0.8 08/17/2017 [facility] Basophil # 0.2 K/CMM 0.0 - 0.2 08/17/2017 [facility] Lymphocyte % 34.7 % 20.0 - 40.0 08/17/2017 [facility] Monocyte % 13.0 % 2.0 - 12.0 08/17/2017 [facility] Basophil % 2.5 % 0.0 - 1.0 08/17/2017 [facility] Eosinophil # 3.3 % 0.0 - 4.0 08/17/2017 [facility] Neutrophil % 46.5 % 45.0 - 75.0 08/17/2017 [facility] MPV 9.6 fL 7.4 - 10.4 08/17/2017 [facility] MCHC 33.0 g/dL 32.0 - 36.0 08/17/2017 [facility] MCH 29.6 pg 27.0 - 31.0 08/17/2017 [facility] Platelet 347 K/CMM 133 - 450 08/17/2017 [facility] RDW 14.5 % 11.5 - 14.5 08/17/2017 [facility] MCV 89.6 fL 80.0 - 98.0 08/17/2017 [facility] White Blood Count 8.1 K/CMM 3.7 - 10.4 08/17/2017 [facility] Hemoglobin 12.7 g/dL 12.0 - 16.0 08/17/2017 [facility] Red Blood Cell Count 4.30 M/CMM 4.20 - 5.40 08/17/2017 [facility] Hematocrit 38.6 % 36.0 - 48.0 08/17/2017 [facility] Calcium Level 9.9 mg/dL 8.5 - 10.5 08/17/2017 [facility] ALT 17 unit/L 0 - 65 08/17/2017 [facility] AST 18 unit/L 0 - 37 08/17/2017 [facility] Alk Phos 80 unit/L 39 - 136 08/17/2017 [facility] Bilirubin Total 0.4 mg/dL 0.2 - 1.3 08/17/2017 [facility] eGFR 73 mL/min/1.73m2 08/17/2017 Result Comment: The eGFR is calculated using the [...] should be multiplied by the estimated BMI. [facility] Globulin 3.9 g/dL 2.7 - 4.2 08/17/2017 [facility] Alb/Glob Ratio 1.0 0.7 - 1.6 08/17/2017 [facility] Albumin Lvl 4.0 g/dL 3.5 - 5.0 08/17/2017 [facility] Protein Total 7.9 g/dL 6.4 - 8.4 08/17/2017 [facility] AGAP 11.6 meq/L 10.0 - 20.0 08/17/2017 [facility] Carbon Dioxide Level 31 meq/L 24 - 32 08/17/2017 [facility] Chloride Level 98 meq/L 95 - 109 08/17/2017 [facility] Glucose Lvl 85 mg/dL 70 - 99 08/17/2017 Result Comment: Adult reference range values reflect the clinical guidelines of the [place] [employer]. [facility] BUN 15 mg/dL 7 - 08/17/2017 [facility] Creatinine 0.91 mg/dL 0.50 - 1.40 08/17/2017 [facility] Potassium Level 3.6 meq/L 3.5 - 5.1 08/17/2017 [facility] Sodium Level 137 meq/L 135 - 145 08/17/2017 [facility] INR 1.02 0.85 - 1.17 08/17/2017 Result Comment: RECOMMENDED RANGES FOR PROTIME INR: 2.0-3.0 for most medical and surgical thromboembolic states. 2.5-3.5 for artificial heart valves and recurrent embolism. INR SHOULD BE USED ONLY FOR PATIENTS ON STABLE ANTICOAGULANT THERAPY. [facility] PT 13.4 s 12.0 - 14.7 08/17/2017 [facility] PTT 38.0 s 22.9 - 35.8 08/17/2017 Result Comment: Heparin Therapeutic Range: 57 - 92 Seconds [facility] Magnesium Level 2.0 mg/dL 1.8 - 2.4 08/17/2017 [facility] MPV 10.1 fL 7.4 - 10.4 04/28/2017 [facility] RDW 15.4 % 11.5 - 14.5 04/28/2017 [facility] Platelet 288 K/CMM 133 - 450 04/28/2017 [facility] Hemoglobin 12.7 g/dL 12.0 - 16.0 04/28/2017 [facility] Hematocrit 37.9 % 36.0 - 48.0 04/28/2017 [facility] MCH 29.8 pg 27.0 - 31.0 04/28/2017 [facility] MCHC 33.5 g/dL 32.0 - 36.0 04/28/2017 [facility] MCV 88.9 fL 80.0 - 98.0 04/28/2017 [facility] White Blood Count 9.9 K/CMM 3.7 - 10.4 04/28/2017 [facility] Red Blood Cell Count 4.26 M/CMM 4.20 - 5.40 04/28/2017 [facility] Beta hCG Ql Negative Negative 04/28/2017 [facility] Basophil # 0.3 K/CMM 0.0 - 0.2 04/28/2017 [facility] Monocyte # 1.3 K/CMM 0.0 - 0.8 04/28/2017 [facility] Eosinophil % 0.8 K/CMM 0.0 - 0.5 04/28/2017 [facility] Lymphocyte # 3.2 K/CMM 1.0 - 5.5 04/28/2017 [facility] Neutrophil # 4.3 K/CMM 1.5 - 8.1 04/28/2017 [facility] Lymphocyte % 32.8 % 20.0 - 40.0 04/28/2017 [facility] Eosinophil # 8.0 % 0.0 - 4.0 04/28/2017 [facility] Monocyte % 13.1 % 2.0 - 12.0 04/28/2017 [facility] Neutrophil % 43.3 % 45.0 - 75.0 04/28/2017 [facility] Basophil % 2.8 % 0.0 - 1.0 04/28/2017 [facility] Magnesium Level 2.0 mg/dL 1.8 - 2.4 04/28/2017 [facility] eGFR 70 mL/min/1.73m2 04/28/2017 Result Comment: The eGFR is calculated using the [...] should be multiplied by the estimated BMI. [facility] Carbon Dioxide Level 32 meq/L 24 - 32 04/28/2017 [facility] Chloride Level 98 meq/L 95 - 109 04/28/2017 [facility] AGAP 11.7 meq/L 10.0 - 20.0 04/28/2017 [facility] Calcium Level 9.3 mg/dL 8.5 - 10.5 04/28/2017 [facility] Glucose Lvl 64 mg/dL 70 - 99 04/28/2017 Result Comment: Adult reference range values reflect the clinical guidelines of the [place] [employer]. [facility] Potassium Level 3.7 meq/L 3.5 - 5.1 04/28/2017 [facility] Sodium Level 138 meq/L 135 - 145 04/28/2017 [facility] Creatinine 0.95 mg/dL 0.50 - 1.40 04/28/2017 [facility] BUN 10 mg/dL 7 - 22 04/28/2017 [facility] Vital Sign Value Date Comments Source Heart Rate 76 11/09/2018 [facility] Respitory Rate 16 11/09/2018 [facility] Systolic (mm Hg) 118 11/09/2018 [facility] Diastolic (mm Hg) 70 11/09/2018 [facility] Heart Rate 74 11/09/2018 [facility] Respitory Rate 16 11/09/2018 [facility] Systolic (mm Hg) 120 11/09/2018 [facility] Diastolic (mm Hg) 74 11/09/2018 [facility] Respitory Rate 16 11/09/2018 [facility] Heart Rate 76 11/09/2018 [facility] Systolic (mm Hg) 121 11/09/2018 [facility] Diastolic (mm Hg) 70 11/09/2018 [facility] Temperature Oral (F) 36.5 Carli 11/09/2018 [facility] Height 170.18 cm 11/09/2018 [facility] Weight Measured 61 11/09/2018 [facility] Peripheral Pulse Rate 64 11/09/2018 [facility] Temperature Oral (F) 36.5 Carli 11/09/2018 [facility] Temperature Oral (F) 36.6 Carli 11/06/2018 [facility] Peripheral Pulse Rate 61 11/06/2018 [facility] Weight Measured 61 11/06/2018 [facility] Height 170.18 cm 11/06/2018 [facility] Temperature Oral (F) 36.6 Carli 08/23/2017 [facility] Respitory Rate 14 08/23/2017 [facility] Heart Rate 63 08/23/2017 [facility] Systolic (mm Hg) 106 08/23/2017 [facility] Diastolic (mm Hg) 70 08/23/2017 [facility] Respitory Rate 16 08/23/2017 [facility] Systolic (mm Hg) 106 08/23/2017 [facility] Diastolic (mm Hg) 59 08/23/2017 [facility] Heart Rate 65 08/23/2017 [facility] Temperature Oral (F) 36.5 Carli 08/23/2017 [facility] Systolic (mm Hg) 104 08/23/2017 [facility] Diastolic (mm Hg) 60 08/23/2017 [facility] Heart Rate 66 08/23/2017 [facility] Respitory Rate 16 08/23/2017 [facility] Temperature Oral (F) 36.8 Carli 08/23/2017 [facility] Temperature Oral (F) 36.6 Carli 08/22/2017 [facility] Weight Measured 60.9 08/22/2017 [facility] Height 172.72 cm 08/22/2017 [facility] Temperature Oral (F) 37.4 Carli 08/22/2017 [facility] Peripheral Pulse Rate 58 08/22/2017 [facility] Peripheral Pulse Rate 54 08/17/2017 [facility] Height 172.72 cm 08/17/2017 [facility] Weight Measured 60.9 08/17/2017 [facility] Systolic (mm Hg) 114 05/02/2017 [facility] Diastolic (mm Hg) 66 05/02/2017 [facility] Respitory Rate 16 05/02/2017 [facility] Heart Rate 68 05/02/2017 [facility] Respitory Rate 16 05/02/2017 [facility] Heart Rate 65 05/02/2017 [facility] Systolic (mm Hg) 121 05/02/2017 [facility] Diastolic (mm Hg) 68 05/02/2017 [facility] Systolic (mm Hg) 99 05/02/2017 [facility] Diastolic (mm Hg) 62 05/02/2017 [facility] Respitory Rate 16 05/02/2017 [facility] Heart Rate 66 05/02/2017 [facility] Temperature Oral (F) 36.4 Carli 05/02/2017 [facility] Height 172.72 cm 05/02/2017 [facility] Weight Measured 57.61 05/02/2017 [facility] Peripheral Pulse Rate 63 05/02/2017 [facility] Temperature Oral (F) 36.8 Carli 05/02/2017 [facility] Weight Measured 57.6 04/28/2017 [facility] Height 172.72 cm 04/28/2017 [facility] Peripheral Pulse Rate 56 04/28/2017 [facility] Temperature Oral (F) 36.8 Carli 04/28/2017 [facility] Encounters Location Location Details Encounter Type Encounter Number Reason For Visit Attending Provider ADM Date DC Date Status Source [facility] Outpatient [id number] Amna Posey 05/02/2017 05/02/2017 [facility] Outpatient [id number] Amna Posey 05/02/2017 05/02/2017 [facility] OBS [id number] Amna Posey 08/22/2017 08/23/2017 [facility] Observation [id number] Amna Posey 08/22/2017 08/23/2017 [facility] Outpatient [id number] Elijah Holcomb MD 11/09/2018 11/09/2018 [facility] Outpatient [id number] Elijah Holcomb MD 11/09/2018 11/09/2018 [facility] Procedures Procedure Code Date Perfomer Comments Source colonoscopy [facility] hysterectomy 2016 [facility] Acute tear of lateral meniscus of right knee [id number] [facility] Cryotherapy [id number] [facility] TL - Tubal ligation [id number] [facility] Breast augmentation [id number] [facility] hysteroscopy [facility]
--- OUTSIDE RECORDS SUMMARY | 2019-03-13 06:22 | XMS REPORT | Summary of Care ---
Author Author [facility] Address Unknown Phone Unavailable Encounter FIN [facility] [id number] Date(s): 08/22/17 - 08/23/17 [facility] [address] [place], [place] [address] Discharge Diagnosis: Endometrial hyperplasia, unspecified Discharge Disposition: Discharged to Home or Self Care Attending Physician: Amna Posey MD Admitting Physician: Amna Posey MD Vital Signs 1 2 3 Most recent to oldest [Reference Range]: 36.6 DegC (08/23/17 10:15 AM) 36.5 DegC (08/23/17 7:00 AM) 36.8 DegC (08/23/17 4:15 AM) Temperature Oral [35.8-37.3 DegC] 36.6 DegC (08/22/17 8:45 AM) 37.4 DegC (08/22/17 6:35 AM) Temperature Temporal Artery [36.3-37.8 DegC] 97.88 DegF (08/23/17 10:15 AM) 97.7 DegF (08/23/17 7:00 AM) 98.24 DegF (08/23/17 4:15 AM) Temperature Farenheit 97.88 (08/22/17 8:45 AM) Temperature Temporal Fahrenheit 58 bpm (08/22/17 6:35 AM) 54 bpm *LOW* (08/17/17 10:29 AM) Peripheral Pulse Rate [55-105 bpm] 63 bpm (08/23/17 10:15 AM) 65 bpm (08/23/17 7:00 AM) 66 bpm (08/23/17 4:15 AM) Heart Rate Monitored [60-100 bpm] 14 (08/23/17 10:15 AM) 16 (08/23/17 7:00 AM) 16 (08/23/17 4:15 AM) Respiratory Rate [12-20] 97 % (08/23/17 10:15 AM) 97 % (08/23/17 7:00 AM) 96 % (08/23/17 4:15 AM) SpO2 [90-100 %] 106/70 mmHg *LOW* (08/23/17 10:15 AM) 106/59 mmHg *LOW* (08/23/17 7:00 AM) 104/60 mmHg *LOW* (08/23/17 4:15 AM) Blood Pressure [110-120/65-85 mmHg] 82 mmHg (08/23/17 10:15 AM) 74.7 mmHg (08/23/17 7:00 AM) 74.7 mmHg (08/23/17 4:15 AM) Mean Arterial Pressure, Cuff 172.72 cm (08/22/17 6:35 AM) 172.72 cm (08/17/17 10:29 AM) Height 172.72 cm (08/22/17 6:35 AM) 172.72 cm (08/17/17 10:29 AM) Height/Length Dosing 68 in (08/22/17 6:35 AM) 68 in (08/17/17 10:29 AM) Height Inches 60.9 kg (08/22/17 6:35 AM) 60.9 kg (08/17/17 10:29 AM) Weight 60.9 kg (08/22/17 6:35 AM) 60.9 kg (08/17/17 10:29 AM) Weight Dosing 134 lb (08/22/17 6:35 AM) 134 lb (08/17/17 10:29 AM) Weight Pounds 20.41 kg/m2 (08/22/17 6:35 AM) 20.41 kg/m2 (08/17/17 10:29 AM) Body Mass Index Problem List Condition Effective Dates Status Health Status Informant Endometrial Active hyperplasia(Confirme d) Hypertension(Confirm Active ed) Hypothyroidism(Confi Active rmed) Lupus(Confirmed) Active PONV - Postoperative Active nausea and vomiting(Confirmed) Postmenopausal Active bleeding(Confirmed) Raynauds Active disease(Confirmed) Scleroderma(Confirme Active d) Allergies, Adverse Reactions, Alerts Substance Reaction Severity Status influenza virus vaccine, Active live Medications acetaminophen 650 mg=2 tabs, Tab, Oral, q6hr PRN for temp greater than 101.5 F (38.6 C), first dose 08/22/17 10:06:00 CLIENT OPERATIONS MANAGER Notes: Max 4gm acetaminophen in 24 hours Start Date: 08/22/17 Stop Date: 08/23/17 Status: Discontinued acetaminophen 1,000 mg, Soln-IV, IV, Once, first dose 08/22/17 8:10:00 CLIENT OPERATIONS MANAGER, stop date 08/22/17 8:10:00 CLIENT OPERATIONS MANAGER Start Date: 08/22/17 Stop Date: 08/22/17 Status: Completed acetaminophen IVPB 1,000 mg, Soln-IV, IV Piggyback, q6hr, infuse over 15 minutes, first dose 14:00:00 CLIENT OPERATIONS MANAGER Notes: Max 4gm acetaminophen in 24 hours Start Date: 08/22/17 Stop Date: 08/23/17 Status: Discontinued amLODIPine 10 mg oral tablet 10 mg=1 tabs, Oral, Daily, 0 Refill(s) Start Date: 04/28/17 Stop Date: 05/12/17 Status: Ordered Aspir 81 1 mg, Oral, Daily, 0 Refill(s) Start Date: 04/28/17 Stop Date: 05/12/17 Status: Ordered Benadryl 25 mg=0.5 mL, Injection, IM, q6hr PRN for itching, first dose 08/22/17 10:06:00 CLIENT OPERATIONS MANAGER Start Date: 08/22/17 Stop Date: 08/23/17 Status: Discontinued cefOXitin 2 gm, Soln-IV, IV Piggyback, Once, infuse over 30 minutes, first dose 08/22/17 7 :00:00 CLIENT OPERATIONS MANAGER, stop date 08/22/17 7:00:00 CLIENT OPERATIONS MANAGER, Prophylaxis Start Date: 08/22/17 Stop Date: 08/22/17 Status: Completed cefOXitin 2,000 mg, Soln-IV, IV, Once, first dose 08/22/17 7:22:00 CLIENT OPERATIONS MANAGER, stop date 08/22/17 7:22:00 CLIENT OPERATIONS MANAGER Start Date: 08/22/17 Stop Date: 08/22/17 Status: Completed Colace 100 mg=1 caps, Cap, Oral, BID, first dose 08/23/17 9:00:00 CLIENT OPERATIONS MANAGER Start Date: 08/23/17 Stop Date: 08/23/17 Status: Discontinued communication to pharmacist Pharmacist to D/C medications upon transfer, Each, N/A, Once, first dose 7 11:00:00 CLIENT OPERATIONS MANAGER, stop date 08/22/17 11:00:00 CLIENT OPERATIONS MANAGER Start Date: 08/22/17 Stop Date: 08/22/17 Status: Ordered D5W with NS 1,000 mL 1,000 mL, IV, 125 mL/hr, start date 08/22/17 10:06:00 CLIENT OPERATIONS MANAGER Start Date: 08/22/17 Stop Date: 08/22/17 Status: Discontinued Demerol HCl 12.5 mg=0.5 mL, Injection, IV Push, q5min PRN for Pain Mild (1-3), order duratio n: 4 doses, first dose 08/22/17 9:00:00 CLIENT OPERATIONS MANAGER, stop date 08/22/17 10:15:00 CLIENT OPERATIONS MANAGER Start Date: 08/22/17 Stop Date: 08/22/17 Status: Completed dexamethasone 8 mg=2 mL, Injection, IV, Once, first dose 08/22/17 7:35:00 CLIENT OPERATIONS MANAGER, stop date 08/22 7:35:00 CLIENT OPERATIONS MANAGER Start Date: 08/22/17 Stop Date: 08/22/17 Status: Completed dexamethasone 8 mg, Injection, IV Push, Once, first dose 08/22/17 7:00:00 CLIENT OPERATIONS MANAGER, stop date 08/22 7:00:00 CLIENT OPERATIONS MANAGER Start Date: 08/22/17 Stop Date: 08/22/17 Status: Completed ePHEDrine 10 mg=0.2 mL, Injection, IV, Once, first dose 08/22/17 7:36:00 CLIENT OPERATIONS MANAGER, stop date 7:36:00 CLIENT OPERATIONS MANAGER Start Date: 08/22/17 Stop Date: 08/22/17 Status: Completed ePHEDrine 10 mg=0.2 mL, Injection, IV, Once, first dose 08/22/17 7:45:00 CLIENT OPERATIONS MANAGER, stop date 7:45:00 CLIENT OPERATIONS MANAGER Start Date: 08/22/17 Stop Date: 08/22/17 Status: Completed fentaNYL 100 mcg=2 mL, Injection, IV, Once, first dose 08/22/17 7:25:00 CLIENT OPERATIONS MANAGER, stop date 7:25:00 CLIENT OPERATIONS MANAGER Start Date: 08/22/17 Stop Date: 08/22/17 Status: Completed glycopyrrolate 0.4 mg=2 mL, Injection, IV, Once, first dose 08/22/17 8:27:00 CLIENT OPERATIONS MANAGER, stop date 8:27:00 CLIENT OPERATIONS MANAGER Start Date: 08/22/17 Stop Date: 08/22/17 Status: Completed hydrochlorothiazide-triamterene 25 mg-37.5 mg oral capsule caps, Oral, Daily, 0 Refill(s) Start Date: 04/28/17 Stop Date: 05/12/17 Status: Ordered ibuprofen 800 mg oral tablet 800 mg=1 tabs, Oral, TID, PRN for pain, # 20 tabs, 1 Refill(s) Start Date: 05/02/17 Stop Date: 05/16/17 Status: Completed ketorolac 30 mg=1 mL, Injection, IV, Once, first dose 08/22/17 8:20:00 CLIENT OPERATIONS MANAGER, stop date 07/28 04/11 8:20:00 CLIENT OPERATIONS MANAGER Start Date: 08/22/17 Stop Date: 08/22/17 Status: Completed ketorolac 30 mg=1 mL, Injection, IV Push, q8hr PRN for pain, first dose 08/22/17 11:02:00 CLIENT OPERATIONS MANAGER Notes: "Restricted: No more than 5 days of therapy from any route of administra tion." Start Date: 08/22/17 Stop Date: 08/22/17 Status: Discontinued ketorolac 30 mg=1 mL, Injection, IV Push, q8hr, first dose 08/22/17 21:00:00 CLIENT OPERATIONS MANAGER Notes: "Restricted: No more than 5 days of therapy from any route of administra tion." Start Date: 08/22/17 Stop Date: 08/23/17 Status: Discontinued Lactated Ringers Injection 1,000 mL 1,000 mL, IV, 125 mL/hr, start date 08/22/17 14:00:00 CLIENT OPERATIONS MANAGER Start Date: 08/22/17 Stop Date: 08/23/17 Status: Discontinued lidocaine 3 mL, Injection, IV, Once, first dose 08/22/17 7:29:00 CLIENT OPERATIONS MANAGER, stop date 08/22/17 7 :29:00 CLIENT OPERATIONS MANAGER Start Date: 08/22/17 Stop Date: 08/22/17 Status: Completed lidocaine topical 1 esdras, Soln, IV, Once, first dose 08/22/17 7:32:00 CLIENT OPERATIONS MANAGER, stop date 08/22/17 7:32: 00 CLIENT OPERATIONS MANAGER Start Date: 08/22/17 Stop Date: 08/22/17 Status: Completed Lovenox 30 mg=0.3 mL, Injection, Subcutaneous, Daily, first dose 08/23/17 9:00:00 CLIENT OPERATIONS MANAGER Start Date: 08/23/17 Stop Date: 08/23/17 Status: Discontinued LR 1,000 mL 1,000 mL, IV, 100 mL/hr, start date 08/22/17 6:23:00 CLIENT OPERATIONS MANAGER, For Adults Start Date: 08/22/17 Stop Date: 08/23/17 Status: Discontinued meperidine PICKING SUPERVISOR 10 mg/mL 300 mg 30 mL, PICKING SUPERVISOR Dose (mg): 10, Lockout Interval (min): 10, Limit Amount (mg): 50, Max it Period (hr): 1, Loading Dose (mg): 20, IV, PICKING SUPERVISOR, start date 08/22/17 10:06:00 CLIENT OPERATIONS MANAGER Start Date: 08/22/17 Stop Date: 08/23/17 Status: Discontinued midazolam 2 mg=2 mL, Injection, IV, Once, first dose 08/22/17 7:20:00 CLIENT OPERATIONS MANAGER, stop date 08/22 7:20:00 CLIENT OPERATIONS MANAGER Start Date: 08/22/17 Stop Date: 08/22/17 Status: Completed Misc Medication 1,000 mL, Soln-IV, IV, Once, first dose 08/22/17 8:51:00 CLIENT OPERATIONS MANAGER, stop date 08/22/17 8:51:00 CLIENT OPERATIONS MANAGER Start Date: 08/22/17 Stop Date: 08/22/17 Status: Completed morphine 5 mg=0.5 mL, Injection, IV, Once, first dose 08/22/17 8:33:00 CLIENT OPERATIONS MANAGER, stop date 8:33:00 CLIENT OPERATIONS MANAGER Start Date: 08/22/17 Stop Date: 08/22/17 Status: Completed morphine 2 mg=0.2 mL, Injection, IV Push, q5min PRN for pain severe (7-10), order duratio n: 5 doses, first dose 08/22/17 9:00:00 CLIENT OPERATIONS MANAGER, stop date 08/22/17 10:15:00 CLIENT OPERATIONS MANAGER Start Date: 08/22/17 Stop Date: 08/22/17 Status: Completed morphine 1 mg=0.1 mL, Injection, IV Push, q5min PRN for Pain Moderate (4-6), order durati on: 5 doses, first dose 08/22/17 9:00:00 CLIENT OPERATIONS MANAGER, stop date Limited # of times Start Date: 08/22/17 Stop Date: 08/22/17 Status: Discontinued morphine 5 mg=0.5 mL, Injection, IV, Once, first dose 08/22/17 7:50:00 CLIENT OPERATIONS MANAGER, stop date 7:50:00 CLIENT OPERATIONS MANAGER Start Date: 08/22/17 Stop Date: 08/22/17 Status: Completed Mylicon 160 mg=2 tabs, Tab-Chew, Oral, q4hr PRN for gas, first dose 08/22/17 10:06:00 CS T Start Date: 08/22/17 Stop Date: 08/23/17 Status: Discontinued naloxone 0.4 mg=1 mL, Injection, IV Push, q2min PRN for other (see comment), first dose 1 10/22/16 10:06:00 CLIENT OPERATIONS MANAGER Start Date: 08/22/17 Stop Date: 08/23/17 Status: Discontinued neostigmine 3 mg=3 mL, Injection, IV, Once, first dose 08/22/17 8:27:00 CLIENT OPERATIONS MANAGER, stop date 08/22 8:27:00 CLIENT OPERATIONS MANAGER Start Date: 08/22/17 Stop Date: 08/22/17 Status: Completed ondansetron 4 mg=2 mL, Injection, IV Push, q8hr PRN for nausea/vomiting, first dose 08/22/17 10:06:00 CLIENT OPERATIONS MANAGER Start Date: 08/22/17 Stop Date: 08/23/17 Status: Discontinued ondansetron 4 mg=2 mL, Injection, IV, Once, first dose 08/22/17 8:25:00 CLIENT OPERATIONS MANAGER, stop date 08/22 8:25:00 CLIENT OPERATIONS MANAGER Start Date: 08/22/17 Stop Date: 08/22/17 Status: Completed ondansetron 4 mg=2 mL, Injection, IV Push, Once, first dose 08/22/17 7:00:00 CLIENT OPERATIONS MANAGER, stop date 08/22/17 7:00:00 CLIENT OPERATIONS MANAGER Start Date: 08/22/17 Stop Date: 08/22/17 Status: Completed Pain Ease topical spray 1 sprays, [place], TOP, Once, first dose 08/22/17 7:00:00 CLIENT OPERATIONS MANAGER, stop date 08/22/17 7:00:00 CLIENT OPERATIONS MANAGER, Apply topically for 4 - 10 seconds from a distance of 3 - 7 inche s from the procedure site Start Date: 08/22/17 Stop Date: 08/22/17 Status: Completed promethazine IVPB 12.5 mg, IV Piggyback, q6hr PRN for severe nausea, infuse over 15 minutes, first dose 08/22/17 10:06:00 CLIENT OPERATIONS MANAGER Start Date: 08/22/17 Stop Date: 08/23/17 Status: Discontinued promethazine IVPB 12.5 mg, IV Piggyback, Once PRN for nausea/vomiting, infuse over 15 minutes, fir st dose 08/22/17 9:00:00 CLIENT OPERATIONS MANAGER Start Date: 08/22/17 Stop Date: 08/22/17 Status: Completed propofol 150 mg=15 mL, Emulsion, IV, Once, first dose 08/22/17 7:29:00 CLIENT OPERATIONS MANAGER, stop date 7:29:00 CLIENT OPERATIONS MANAGER Start Date: 08/22/17 Stop Date: 08/22/17 Status: Completed rocuronium 10 mg=1 mL, Injection, IV, Once, first dose 08/22/17 8:04:00 CLIENT OPERATIONS MANAGER, stop date 07/28 04/11 8:04:00 CLIENT OPERATIONS MANAGER Start Date: 08/22/17 Stop Date: 08/22/17 Status: Completed rocuronium 30 mg=3 mL, Injection, IV, Once, first dose 08/22/17 7:30:00 CLIENT OPERATIONS MANAGER, stop date 07/28 04/11 7:30:00 CLIENT OPERATIONS MANAGER Start Date: 08/22/17 Stop Date: 08/22/17 Status: Completed scopolamine 1.5 mg transdermal film, extended release 1 patches, Film-ER, TD, Once, first dose 08/22/17 7:00:00 CLIENT OPERATIONS MANAGER, stop date 7 7:00:00 CLIENT OPERATIONS MANAGER Start Date: 08/22/17 Stop Date: 08/22/17 Status: Completed Synthroid 200 mcg (0.2 mg) oral tablet 200 mcg=1 tabs, Oral, Daily, 0 Refill(s) Start Date: 04/28/17 Stop Date: 05/12/17 Status: Ordered Vicoprofen 2 tabs, Tab, Oral, Once, first dose 08/22/17 11:00:00 CLIENT OPERATIONS MANAGER, stop date 08/22/17 11 :00:00 CLIENT OPERATIONS MANAGER Start Date: 08/22/17 Stop Date: 08/23/17 Status: Completed Vicoprofen 1 tabs, Tab, Oral, q4hr PRN for pain mild-moderate (1-6), first dose 08/23/17 5: 00:00 CLIENT OPERATIONS MANAGER Start Date: 08/23/17 Stop Date: 08/23/17 Status: Discontinued Vicoprofen 2 tabs, Tab, Oral, q4hr PRN for pain severe (7-10), first dose 08/23/17 5:00:00 CLIENT OPERATIONS MANAGER Start Date: 08/23/17 Stop Date: 08/23/17 Status: Discontinued Zoloft 100 mg oral tablet 100 mg=1 tabs, Oral, qHS, 0 Refill(s) Start Date: 04/28/17 Stop Date: 05/12/17 Status: Ordered Results LABORATORY Most recent to 1 oldest [Reference Range]: FIO2 98 % (08/22/17 8:45 AM) White Blood Count 8.1 K/CMM [3.7-10.4 K/CMM] *NA* (08/17/17 11:09 AM) Red Blood Cell Count 4.30 M/CMM [4.20-5.40 M/CMM] *NA* (08/17/17 11:09 AM) Hemoglobin 12.7 gm/dL [12.0-16.0 gm/dL] *NA* (08/17/17 11:09 AM) Hematocrit 38.6 % [36.0-48.0 %] *NA* (08/17/17 11:09 AM) Platelet [133-450 347 K/CMM K/CMM] *NA* (08/17/17 11:09 AM) MCV [80.0-98.0 fL] 89.6 fL *NA* (08/17/17 11:09 AM) MCH [27.0-31.0 pg] 29.6 pg *NA* (08/17/17 11:09 AM) MCHC [32.0-36.0 33.0 gm/dL gm/dL] *NA* (08/17/17 11:09 AM) RDW [11.5-14.5 %] 14.5 % *NA* (08/17/17 11:09 AM) MPV [7.4-10.4 fL] 9.6 fL *NA* (08/17/17 11:09 AM) Neutrophil % 46.5 % [45.0-75.0 %] *NA* (08/17/17 11:09 AM) Lymphocyte % 34.7 % [20.0-40.0 %] *NA* (08/17/17 11:09 AM) Monocyte % [2.0-12.0 13.0 % %] *HI* (08/17/17 11:09 AM) Eosinophil % 0.3 K/CMM [0.0-0.5 K/CMM] *NA* (08/17/17 11:09 AM) Basophil % [0.0-1.0 2.5 % %] *HI* (08/17/17 11:09 AM) Neutrophil # 3.8 K/CMM [1.5-8.1 K/CMM] *NA* (08/17/17 11:09 AM) Lymphocyte # 2.8 K/CMM [1.0-5.5 K/CMM] *NA* (08/17/17 11:09 AM) Monocyte # [0.0-0.8 1.1 K/CMM K/CMM] *HI* (08/17/17 11:09 AM) Eosinophil # 3.3 % [0.0-4.0 %] *NA* (08/17/17 11:09 AM) Basophil # [0.0-0.2 0.2 K/CMM K/CMM] *NA* (08/17/17 11:09 AM) PT [12.0-14.7 13.4 seconds seconds] *NA* (08/17/17 11:09 AM) INR [0.85-1.17] 1.02 1 *NA* (08/17/17 11:09 AM) PTT [22.9-35.8 38.0 seconds 2 seconds] *HI* (08/17/17 11:09 AM) Sodium Level 137 mEq/L [135-145 mEq/L] *NA* (08/17/17 11:09 AM) Potassium Level 3.6 mEq/L [3.5-5.1 mEq/L] *NA* (08/17/17 11:09 AM) Chloride Level 98 mEq/L [95-109 mEq/L] *NA* (08/17/17 11: AM) Total Carbon Dioxide 31 mEq/L Level [24-32 mEq/L] *NA* (08/17/17 11:09 AM) AGAP [10.0-20.0 11.6 mEq/L mEq/L] *NA* (08/17/17 11:09 AM) BUN [7-22 mg/dL] 15 mg/dL *NA* (08/17/17 11: AM) Creatinine 0.91 mg/dL [0.50-1.40 mg/dL] *NA* (08/17/17 11:09 AM) Glucose Lvl [70-99 85 mg/dL 3 mg/dL] *NA* (08/17/17 11:09 AM) Calcium Level 9.9 mg/dL [8.5-10.5 mg/dL] *NA* (08/17/17 11:09 AM) Albumin Lvl [3.5-5.0 4.0 gm/dL gm/dL] *NA* (08/17/17 11:09 AM) Protein Total 7.9 gm/dL [6.4-8.4 gm/dL] *NA* (08/17/17 11:09 AM) Alk Phos [39-136 80 unit/L unit/L] *NA* (08/17/17 11:09 AM) AST [0-37 unit/L] 18 unit/L *NA* (08/17/17 11:09 AM) ALT [0-65 unit/L] 17 unit/L *NA* (08/17/17 11:09 AM) Bilirubin Total 0.4 mg/dL [0.2-1.3 mg/dL] *NA* (08/17/17 11:09 AM) eGFR 73 mL/min/1.73m2 4 *NA* (08/17/17 11:09 AM) Magnesium Level 2.0 mg/dL [1.8-2.4 mg/dL] *NA* (08/17/17 11:09 AM) Globulin [2.7-4.2 3.9 gm/dL gm/dL] *NA* (08/17/17 11:09 AM) Alb/Glob Ratio 1.0 [0.7-1.6] *NA* (08/17/17 11:09 AM) 1Result Comment: RECOMMENDED RANGES FOR PROTIME INR: 2.0-3.0 for most medical and surgical thromboembolic states. 2.5-3.5 for artificial heart valves and recurrent embolism. INR SHOULD BE USED ONLY FOR PATIENTS ON STABLE ANTICOAGULANT THERAPY. 2Result Comment: Heparin Therapeutic Range: 57 - 92 Seconds 3Result Comment: Adult reference range values reflect the clinical guidelines of the [employer]. 4Result Comment: The eGFR is calculated using the [...] Procedures Procedure Date Related Diagnosis Body Site Breast augmentation hysteroscopy Social History Social History Type Response Assessment and Plan No data available for this section
[2019-03-13 11:20] VITALS: BP 138/78
--- NOTE | 2019-03-13 12:05 | Operative Report ---
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 PROCEDURES: Radical excision of soft tissue neoplasm, left forearm. ANESTHESIA: General. HISTORY: The patient is a 54-year-old female, who has a diagnosis of systemic scleroderma. She has significant calcinosis of the soft tissues of the volar aspect of the bilateral thumbs at the level of the proximal phalanges. She also has a significant calcinosis of the extensor surface of the left forearm. These masses are pressing on the neurovascular bundles and are causing significant pain as well as interfering with ADLs. Risks, benefits, and alternatives of treatment were discussed with the patient. She is prepared to undergo the procedure as outlined. PROCEDURE IN DETAIL: The patient was marked preoperatively in the holding area. She was then brought to the operating theater and after the induction of adequate general anesthesia, she was prepped and draped in a supine position. A time-out was performed. The procedure was begun by marking the volar Kwabena zigzag incisions from the thenar eminence across the MP flexion crease and then towards the IP flexion crease of both thumbs. The right side was operated on first. The right upper extremity was exsanguinated and the tourniquet was inflated to a pressure of 250 mmHg. The incision was made through the skin and subcutaneous tissues. The skin was noted to be markedly thickened and immediately upon entering the subcutaneous space, the calcinosis was encounter. The procedure was begun by first identifying both neurovascular bundles on the radial and ulnar side of the flexor tendon sheath in keeping these in view. The dissection then continued from proximal to distal until both neurovascular bundles had been completely removed from the area of calcinosis and the entire proximal phalanx was visualized. At this point, the remaining soft tissue was radically excised from beneath the skin to the flexor tendon sheath, taking care to protect and preserve the neurovascular bundles. The mass was then removed. The wound was irrigated with bacteriostatic saline and then closed with a 5-0 nylon in interrupted horizontal mattress fashion. A Marcaine field block was performed at the base of the thumb with 0.5% plain Marcaine. Tourniquet was deflated. All the fingers pinked up nicely and the wound was noted to be hemostatic. Bactroban ointment, Xeroform gauze and a sterile dressing were applied. Attention was then turned to the left thumb on the left forearm. A standard volar Kwabena zigzag incision was marked out on the volar surface of the left thumb. A longitudinal incision was marked out over the prominence of the mass in the extensor surface of the left forearm. The left upper extremity was exsanguinated and a tourniquet was inflated to a pressure of 250 mmHg. The incision in the volar surface of the thumb was performed first. The incision was made through the skin and subcutaneous tissue. Venous tributaries were controlled with bipolar cautery. The neurovascular bundles on the radial and ulnar side of the flexor tendon sheath were identified in the proximal aspect of the wound and these were then traced distally. They were protected and preserved. Once again, the calcinosis was noted to extend from the subcutaneous space down to the flexor tendon sheath to keep the neurovascular bundles inside. The masses were radically excised. The wound was then irrigated with bacteriostatic saline and closed with a 5-0 nylon interrupted horizontal mattress fashion. A Marcaine field block was performed at the operative site. The incision in the left forearm was made through the skin and subcutaneous tissues. Venous tributaries were controlled with bipolar cautery. The mass was sharply excised from the undersurface of the dermis down to the level of the extensor surface. Once the mass had been radically excised, it was sent for permanent pathologic examination. The wound was irrigated with bacteriostatic saline and closed with a 5-0 nylon interrupted horizontal mattress fashion. A Marcaine field block was performed at the operative site. The tourniquet was deflated. All the fingers pinked up nicely. A sterile bulking Henson bandage was applied around the left thumb as well as the left forearm. The findings are that the mass on the right thumb measured approximately 2.0 cm. The mass on the left thumb measured approximately 2.5 cm and a mass in the left extensor surface of the forearm measured approximately 3.0 cm. Brennen Smallwood MD ER/MODL /[id number]
== END | disposition home or self-care (01) ==
LOC: OR 06:19
PROVIDERS: ATTEND Plastic Surgery
DX: E83.59 Other disorders of calcium metabolism (principal); M34.9 Systemic sclerosis, unspecified; I73.00 Raynaud's syndrome without gangrene; M32.9 Systemic lupus erythematosus, unspecified; E03.9 Hypothyroidism, unspecified; I10 Essential (primary) hypertension; K21.9 Gastro-esophageal reflux disease without esophagitis; Z88.7 Allergy status to serum and vaccine; Z01.810 Encounter for preprocedural cardiovascular examination; Z01.812 Encounter for preprocedural laboratory examination; Z79.82 Long term (current) use of aspirin
CPT/HCPCS: 25075; 26111 ×2; 36415; 80048; 88305; 93005; J0690; J1100; J1885; J2001; J2250; J2405; J2704; 88304